=== PATIENT | female | born 1955 | race Caucasian/White ===

== ENCOUNTER → 2017-05-23 | Outpatient (CLI) | payer OTHER | LOC: FIMAGING 03-15 08:48 | PROVIDERS: ATTEND Family Medicine | DX: Z13.820 Encounter for screening for osteoporosis (principal); M85.80 Other specified disorders of bone density and structure, unspecified site; Z78.0 Asymptomatic menopausal state; Z82.62 Family history of osteoporosis; Z79.890 Hormone replacement therapy; Z79.899 Other long term (current) drug therapy ==

== ENCOUNTER → 2017-06-10 | Outpatient (CLI) | payer OTHER | LOC: CIMAGING 11:11 | PROVIDERS: ATTEND Family Medicine | DX: M77.32 Calcaneal spur, left foot (principal) | CPT/HCPCS: 73630-PO ==

== ENCOUNTER → 2018-02-01 | Outpatient (CLI) | payer OTHER | LOC: FIMAGING 11:00 | PROVIDERS: ATTEND Family Medicine | DX: Z12.31 Encounter for screening mammogram for malignant neoplasm of breast (principal); Z80.3 Family history of malignant neoplasm of breast ==